=== PATIENT | male | born 1980 ===

== ENCOUNTER 2021-03-07 09:17 | Emergency (ER) | payer OTHER ==
[~2021-03-07] VITALS: Ht 162.6 cm; Wt 65.9 kg
[2021-03-07] MEDS ORDERED: LEVOTHYROXIN88 MC1 PO (09:39)
[2021-03-07] MEDS ORDERED: IBUPROFEN600 MG PO (09:40)
[2021-03-07] MEDS ORDERED: LITHIUM CARB300 M1 PO (09:40)
[2021-03-07 13:26] VITALS: BP 145/92
== END 2021-03-07 13:26 | disposition designated cancer center or children's hospital (05) | DRG 395 ==
LOC: ED 09:17
DX: K62.89 Other specified diseases of anus and rectum (principal); E03.9 Hypothyroidism, unspecified